=== PATIENT | female | born 1955 | race Caucasian/White ===

== ENCOUNTER 2022-05-29 05:10 | Day surgery (SDC) | payer OTHER ==
[~2022-05-29] VITALS: Ht 157.5 cm; Wt 78.0 kg
[2022-05-29] MEDS ORDERED: CLINDAMYCIN PHOS 600 MG/ D5W 50 ML PREMIX IV ONE (07:00)
[2022-05-29] MEDS ORDERED: ONDANSETRON HCL 4 MG/2 ML VIAL ONE (07:30)
[2022-05-29] MEDS ORDERED: DEXAMETHASONE SOD PHOSPHATE 4 MG/ML VIAL ONE (07:30)
[2022-05-29] MEDS ORDERED: PROPOFOL DRIP 10 MG/ML 100ML BOTTLE IV ONE (07:30)
[2022-05-29] MEDS ORDERED: CLINDAMYCIN PHOSPHATE 600 mg/50mL D5W IV ONE (07:30)
[2022-05-29] MEDS ORDERED: FENTANYL CITRATE IV ONE (07:30)
[2022-05-29] MEDS ORDERED: KETOROLAC TROMETHAMINE 30 MG VIAL ONE (07:30)
[2022-05-29] MEDS ORDERED: ROCURONIUM BROMIDE 10 MG/ML (ZEMURON) ONE (07:30)
[2022-05-29] MEDS ORDERED: MIDAZOLAM HCL 2 MG/2 ML VIAL (VERSED) ONE (07:30)
[2022-05-29] MEDS ORDERED: DESFLURANE 15 MIN GAS INH ONE (07:30)
[2022-05-29] MEDS ORDERED: ACETAMINOPHEN I.V. 1000 MG /100 ML IVPB PREMIX IV ONE (07:30)
[2022-05-29] MEDS ORDERED: METOCLOPRAMIDE HCL 10 MG/2 ML VIAL IVP PRN (08:15)
[2022-05-29] MEDS ORDERED: hydrALAZINE HCL 20 MG/ML VIAL IVP PRN (08:15)
[2022-05-29] MEDS ORDERED: LABETALOL 100 MG/ 20ML VIAL IVP PRN (08:15)
[2022-05-29] MEDS ORDERED: MEPERIDINE HCL/PF 25 MG/ML DISP.SYRIN IVP PRN (08:15)
[2022-05-29] MEDS ORDERED: HYDROmorphone 1 MG/ML INJ. CARTRIDGE IVP PRN ×3 (08:15→09:15)
[2022-05-29] MEDS ORDERED: LR 1,000 ML IV SCH (08:15)
[2022-05-29] MEDS ORDERED: ACETAMINOPHEN I.V. 1000 MG 100 ML IV ONE (08:53)
[2022-05-29] MEDS ORDERED: HYDROcodone/ACETAMIN 5-325 MG TAB (NORCO/ VICODIN) PO PRN ×2 (09:15)
[2022-05-29] MEDS ORDERED: D5/0.45 NS 1,000 ML IV SCH (09:15)
[2022-05-29] MEDS ORDERED: HYDROmorphone 1 MG/ML INJ. CARTRIDGE ONE (10:14)
[2022-05-29 10:55] VITALS: BP_SYST 114
== END 2022-05-29 12:00 | disposition home or self-care (01) ==
LOC: SDS 05:10 → SMU 05:10 → SDS 12:00
PROVIDERS: ATTEND Colon & Rectal Surgery
DX: K80.12 Calculus of gallbladder with acute and chronic cholecystitis without obstruction (principal); K80.66 Calculus of gallbladder and bile duct with acute and chronic cholecystitis without obstruction; I10 Essential (primary) hypertension; K21.9 Gastro-esophageal reflux disease without esophagitis; E78.5 Hyperlipidemia, unspecified; M85.80 Other specified disorders of bone density and structure, unspecified site; G63 Polyneuropathy in diseases classified elsewhere; Z90.710 Acquired absence of both cervix and uterus; Z79.899 Other long term (current) drug therapy; Z20.822 Contact with and (suspected) exposure to COVID-19
CPT/HCPCS: 36415 ×2; 47563; 74300; 88304; 87426; U0003; J3010; J3490; J1100; J1885; J3465; J2405; J2704; J1170; Q9967; J7120; C1727; J0131; 76000

== ENCOUNTER 2022-06-09 11:15 | Outpatient (CLI) | payer OTHER | END 2022-06-09 20:33 | disposition home or self-care (01) | LOC: SMI 11:15 | PROVIDERS: ATTEND Colon & Rectal Surgery | DX: K57.30 Diverticulosis of large intestine without perforation or abscess without bleeding (principal); K80.66 Calculus of gallbladder and bile duct with acute and chronic cholecystitis without obstruction; R10.13 Epigastric pain; Z90.49 Acquired absence of other specified parts of digestive tract | CPT/HCPCS: 74181 ==

== ENCOUNTER 2023-02-22 05:35 | Day surgery (SDC) | payer OTHER ==
[~2023-02-22] VITALS: Ht 157.5 cm; Wt 78.5 kg
[2023-02-22] MEDS ORDERED: INDOMETHACIN 50 MG SUPP.RECT RC ONE (07:00)
[2023-02-22] MEDS ORDERED: SIMETHICONE 40 MG/0.6 ML ML ONE (07:06)
[2023-02-22] MEDS ORDERED: SUCCINYLCHOLINE CHLORIDE 20 MG/ML(QUELICIN) ONE (07:24)
[2023-02-22] MEDS ORDERED: PROPOFOL 200MG/ 20ML VIAL (DIPRIVAN) IV ONE (07:24)
[2023-02-22] MEDS ORDERED: MIDAZOLAM HCL 2 MG/2 ML VIAL (VERSED) ONE ×2 (07:24→07:32)
[2023-02-22] MEDS ORDERED: SEVOFLURANE 15 MIN GAS INH ONE (07:24)
[2023-02-22] MEDS ORDERED: DEXAMETHASONE SOD PHOSPHATE 4 MG/ML VIAL ONE (07:24)
[2023-02-22] MEDS ORDERED: fentaNYL CITRATE/PF 100 MCG/2 ML AMP ONE ×2 (07:24→07:33)
[2023-02-22] MEDS ORDERED: LR 1,000 ML IV.SOLN IV ONE (07:24)
[2023-02-22] MEDS ORDERED: ONDANSETRON HCL 4 MG/2 ML VIAL ONE (07:24)
[2023-02-22] MEDS ORDERED: METOCLOPRAMIDE HCL 10 MG/2 ML VIAL IVP PRN (09:00)
[2023-02-22] MEDS ORDERED: ONDANSETRON HCL 4 MG/2 ML VIAL IVP PRN (09:00)
[2023-02-22 10:47] VITALS: BP_SYST 140; PULSE 79; RESP 18; TEMP 97.6; O2SAT 98
== END 2023-02-22 11:20 | disposition home or self-care (01) ==
LOC: SMU 05:35 → SDS 05:35 → SMU 05:35 → UNDOADMIN 05:35 → EDSTATUS 07:30 → SDS 11:20
PROVIDERS: ATTEND Internal Medicine Gastroenterology
DX: K80.50 Calculus of bile duct without cholangitis or cholecystitis without obstruction (principal); K21.9 Gastro-esophageal reflux disease without esophagitis; I10 Essential (primary) hypertension; Z90.710 Acquired absence of both cervix and uterus; Z85.3 Personal history of malignant neoplasm of breast; Z90.49 Acquired absence of other specified parts of digestive tract; Z79.899 Other long term (current) drug therapy; Z88.0 Allergy status to penicillin; Z88.1 Allergy status to other antibiotic agents
CPT/HCPCS: 43262; 43264; 74328; J1100; J3465; J2405; J2704; J0330; J3010; J7120; C1769; 76000; Q9967